=== PATIENT | male | born 1965 | race Two or more races ===

== ENCOUNTER 2021-03-26 08:27 | Day surgery (SDC) | payer OTHER ==
[~2021-03-26 08:27] MED LIST: COZAAR100 MG PO
== END 2021-03-26 19:25 | disposition home or self-care (01) ==
LOC: CIR.AMB 08:27
PROVIDERS: ATTEND Colon & Rectal Surgery
DX: K64.8 Other hemorrhoids (principal); Z20.822 Contact with and (suspected) exposure to COVID-19